=== PATIENT | female | born 1955 | race Caucasian/White ===

== ENCOUNTER 2020-06-14 13:16 | Emergency (ER) | payer BC ==
[2020-06-14 13:31] VITALS: BP 141/75; PULSE 60; RESP 18; TEMP 97.4
[2020-06-14] MEDS ORDERED: IBUPROFEN 600 MG TAB PO STA (13:53)
--- NOTE | 2020-06-14 14:03 | ED ---
General Adult HPI - General Chief complaint: Extremity Injury, Lower Stated complaint: TWISTED L ANKLE Time Seen by Provider: 06/14/20 13:35 Source: patient, family, RN notes reviewed Mode of arrival: ambulatory Limitations: no limitations - History of Present Illness Initial comments: 64-year-old female presents to the emergency room for a chief complaint of left ankle pain. Patient and her were out walking today when she stepped in a hole that was covered by leaves and twisted her left ankle. Patient immediately sat down because of the pain. However the pain caused her to become lightheaded and patient did have a syncopal episode for a couple seconds. Patient did not hit her head. She did not sustain any other injuries. She reports that she was able to walk back to the car on that ankle. Patient has no other complaints at this time including shortness of breath, chest pain, abdominal pain, nausea or vomiting, headache, or visual changes. - Related Data Allergies Allergy/AdvReac Type Severity Reaction Status Date / Time codeine Allergy Unknown Verified 06/14/20 13:32 Review of Systems ROS Statement: Those systems with pertinent positive or pertinent negative responses have been documented in the HPI. ROS Other: All systems not noted in ROS Statement are negative. Past Medical History Past Medical History: GERD/Reflux Additional Past Medical History / Comment(s): hormonal. hypercholestremia. History of Any Multi-Drug Resistant Organisms: None Reported Past Surgical History: Section, Hysterectomy Past Psychological History: No Psychological Hx Reported Smoking Status: Never smoker Past Alcohol Use History: Rare Past Drug Use History: Marijuana General Exam Limitations: no limitations General appearance: alert, in no apparent distress Head exam: Present: atraumatic Eye exam: Present: normal appearance, PERRL, EOMI. Absent: scleral icterus, conjunctival injection, periorbital swelling ENT exam: Present: normal exam, mucous membranes moist Neck exam: Present: normal inspection, full ROM. Absent: tenderness, meningismus, lymphadenopathy Respiratory exam: Present: normal lung sounds bilaterally. Absent: respiratory distress, wheezes, rales, rhonchi, stridor Cardiovascular Exam: Present: regular rate, normal rhythm, normal heart sounds. Absent: systolic murmur, diastolic murmur, rubs, gallop, clicks GI/Abdominal exam: Present: soft, normal bowel sounds. Absent: distended, tenderness, guarding, rebound, rigid Extremities exam: Present: full ROM (Full range of motion of the left ankle.), tenderness (Tenderness noted to the lateral malleolus of the left ankle.), normal capillary refill (Capillary refill less than 2 seconds, DP pulse 2+ in the left lower extremity.), other (Sensation intact to flexion. Patient does have some edema noted over the lateral malleolus of the left ankle.). Absent: pedal edema, joint swelling, calf tenderness Course Vital Signs 06/14/20 13:28 Temperature 97.4 F L Pulse Rate 60 Respiratory 18 Rate Blood Pressure 141/75 O2 Sat by Pulse 100 Oximetry Procedures - Orthopedic Splinting/Casting Injury #1 Side: left Lower Extremity Injury Location: short leg Lower Extremity Immobilizer: stirrup splint Medical Decision Making - Medical Decision Making Left lateral malleoli tenderness. Mild edema of the lateral malleoli. No tenderness of the left foot including the fifth metatarsal or navicular. Skin exam is normal. X-ray shows a fracture involving the tip of the distal fibula with minimal displacement. Patient was placed in a stirrup splint. Neurovascular status intact. Discussed return parameters and care instructions. Discussed following up with ortho. She will return here for any worsening symptoms. Disposition Clinical Impression: Fibula fracture Disposition: HOME SELF-CARE Condition: Good Instructions (If sedation given, give patient instructions): Ankle Fracture (ED) Additional Instructions: Please take Motrin and Tylenol for pain. Please rest ice and elevate the left ankle. Please follow-up with your orthopedics in one to 2 days. Return to the emergency room for any worsening symptoms. Is patient prescribed a controlled substance at d/c from ED?: No Referrals: Erwin Barton DO [Primary Care Provider] - 1-2 days Nick Orta DO [Doctor of Osteopathic Medicine] - 1-2 days Time of Disposition: 15:08
--- NOTE | 2020-06-14 14:19 | XR ---
EXAMINATION TYPE: XR ankle complete LT DATE OF EXAM: 06/14/2020 COMPARISON: NONE HISTORY: Pain TECHNIQUE: 3 views of the left ankle are submitted for evaluation. FINDINGS: Fracture involving the tip of the distal fibula with minimal displacement. No additional fr acture seen. Lateral soft tissue swelling noted. Ankle mortise is intact. IMPRESSION: 1. Fracture involving the tip of the distal fibula with minimal displacement.
== END 2020-06-14 15:57 | disposition home or self-care (01) ==
LOC: EC 13:16
DX: S82.832A Other fracture of upper and lower end of left fibula, initial encounter for closed fracture (principal); Z88.5 Allergy status to narcotic agent; X50.1XXA Overexertion from prolonged static or awkward postures, initial encounter
CPT/HCPCS: 29515; 99283